=== PATIENT | male | born 1965 | race Caucasian/White ===

== ENCOUNTER 2018-12-13 20:57 | Emergency (ER) | payer BC ==
[~2018-12-13] VITALS: Ht 180.3 cm; Wt 108.0 kg
[2018-12-13 21:01] VITALS: Ht 180.3 cm; Wt 108.0 kg
[2018-12-13 21:56] LABS: BASOPHIL % 0.9 % (0-2); PLATELET COUNT 215 x10^3mcL (130-400)
[2018-12-13 22:10] LABS: CALCIUM 8.7 mg/dL (8.5-10.1); CARBON DIOXIDE 26.7 mmol/L (21-32); CHLORIDE SERUM 103 mmol/L (98-107); CREATININE SERUM 1.1 mg/dL (0.7-1.3); GFR1 > 60 mL/min; GLUCOSE SERUM 115 mg/dL (74-106); POTASSIUM SERUM 3.6 mmol/L (3.5-5.1); SODIUM SERUM 143 mmol/L (136-145)
[2018-12-13 22:14] LABS: ALBUMIN 3.9 g/dL (3.4-5.0); ALKALINE PHOSPHATASE 100 U/L (46-116); ALT/SGPT 235 U/L (16-63); AST/SGOT 78 U/L (15-37); BILIRUBIN TOTAL 0.7 mg/dL (0.20-1.00); LIPASE 167 IU/L (73-393); TOTAL PROTEIN, SERUM 7.1 g/dL (6.4-8.2)
[2018-12-13 23:20] LABS: microscopic required? NO
[2018-12-13 23:32] LABS: urine erythrocyte NEGATIVE (NEGATIVE)
[2018-12-14 01:37] VITALS: BP 138/99
== END 2018-12-14 01:37 | disposition home or self-care (01) ==
LOC: ED 20:57
PROVIDERS: Emergency Medicine
DX: M54.6 Pain in thoracic spine (principal); K80.80 Other cholelithiasis without obstruction; R10.11 Right upper quadrant pain
CPT/HCPCS: J1885; J2270; J2405; J7030; Q0092